=== PATIENT | female | born 1970 | race Caucasian/White ===

== ENCOUNTER 2020-02-05 13:39 | Emergency (ER) | payer OTHER ==
[~2020-02-05] VITALS: Ht 165.1 cm; Wt 65.0 kg
[~2020-02-05 13:39] MED LIST: CYMBALTA
[2020-02-05 13:41] VITALS: BP 147/86
== END 2020-02-05 14:53 | disposition home or self-care (01) ==
LOC: ER 13:39
DX: Z03.818 Encounter for observation for suspected exposure to other biological agents ruled out (principal); Z00.00 Encounter for general adult medical examination without abnormal findings
CPT/HCPCS: 87635; 99283; C9803; 99281